=== PATIENT | female | born 1975 | race Caucasian/White ===

== ENCOUNTER 2024-01-16 11:02 | Outpatient (CLI) | payer OTHER, SELFPAY ==
--- NOTE | ~2024-01-16 | XR_ITS ---
EXAMINATION: XR abdomen/kub 1V DATE: 01/16/2024 11:22 INDICATION: Left-sided kidney stone TECHNIQUE: A supine view of the abdomen was obtained. COMPARISON: None. FINDINGS: 5 mm density projecting over the upper left kidney, 3 mm density projecting over the mid left kidney and 2 mm density projecting over the inferior left kidney which could represent renal stones or artif act of the mottled pattern of gas and stool in the superimposed bowel. No stones seen projecting over the right kidney. Small round phlebolith in the lateral right hemipelvis. Mild lumbar levocurvature. IMPRESSION: 1. A few small densities projecting over the left kidney which are for stones versus artifact of supe rimposed gas and stool in the bowels. Could consider low dose renal stone protocol CT for more defini tive determination. Reviewed, dictated and finalized at location B. IMPRESSION: 1. A few small densities projecting over the left kidney which are for stones v ersus artifact of superimposed gas and stool in the bowels. Could consider low dose renal stone protocol CT for more definitive determination.
== END 2024-01-16 11:03 | disposition home or self-care (01) ==
LOC: ANHIMG 11:07
PROVIDERS: PCP Family Medicine Sports Medicine; Visit Provider Urology
DX: N20.0 Calculus of kidney (principal)
CPT/HCPCS: 74018